=== PATIENT | female | born 1940 | race Caucasian/White ===

== ENCOUNTER 2017-03-08 06:14 | Day surgery (SDC) | payer MEDICARE ==
[~2017-03-08 06:14] MED LIST: DEXTROSE 5%-0.5 NORMAL SALINE 1,000 ML IV PRN; MORPHINE SULFATE 2 MG/ML DISP.SYRIN IV PRN; MORPHINE SULFATE 4 MG/ML SYRG IV PRN; ONDANSETRON HCL/PF 2 MG/ML VIAL IV PRN; RINGER'S SOLUTION,LACTATED 1,000 ML IV PRN; oxyCODONE HCL/ACETAMINOPHEN 1 TAB TABLET PO PRN
[2017-03-08] MEDS ORDERED: RINGER'S SOLUTION,LACTATED 1,000 ML IV ONE (06:56)
[2017-03-08] MEDS ORDERED: TETRACAINE HCL 150 DROP BTL OP ONE (07:13)
[2017-03-08] MEDS ORDERED: LIDOCAINE HCL/EPINEPHRINE 30 ML VIAL IJ ONE (07:15)
[2017-03-08] MEDS ORDERED: [UNRECOGNIZED DRUG - REMARK] OP ONE (07:36)
[2017-03-08] MEDS ORDERED: POLYMYXIN B SULFATE OP ONE (07:38)
[2017-03-08] MEDS ORDERED: BACITRACIN OP ONE (07:38)
[2017-03-08] MEDS ORDERED: LISINOPRIL 2.5 MG TABLET PO ONE (09:00)
[2017-03-08 09:46] VITALS: BP 159/64
== END 2017-03-08 06:15 | disposition home or self-care (01) ==
LOC: AMB 06:14
PROVIDERS: ATTEND Allergy & Immunology
PROC: 08SR0ZZ Reposition Left Lower Eyelid, Open Approach (ICD-10-PCS; principal; 2017-03-08)
PROC: 08SQ0ZZ Reposition Right Lower Eyelid, Open Approach (ICD-10-PCS; 2017-03-08)
DX: H02.132 Senile ectropion of right lower eyelid (principal); H02.135 Senile ectropion of left lower eyelid; I10 Essential (primary) hypertension; D64.9 Anemia, unspecified; M06.9 Rheumatoid arthritis, unspecified; Z68.20 Body mass index [BMI] 20.0-20.9, adult